=== PATIENT | female | born 1970 | race Caucasian/White ===

== ENCOUNTER → 2019-04-03 12:56 | Emergency (ER) | payer OTHER ==
[~2019-04-03 12:56] MED LIST: Ketorolac INJ* 30 MG/ML 1 ML VIAL IV PUSH ONE
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
[2019-04-03 13:32] LABS: ABS Eosinophils 0.1 10^3/ul (0-0.6); ABS Lymphocytes 1.6 10^3/ul (1.0-4.8); ABS Monocytes 0.6 10^3/ul (0-0.8); ABS Neutrophils 4.6 10^3/ul (1.5-7.7); Eosinophil % 1.2 %; Hematocrit 40 % (35-47); Hemoglobin 13.6 g/dL (12.0-16.0); Lymphocyte % 23.4 %; Mean Corpuscular HGB Conc 34 g/dL (31-36); Mean Corpuscular Hemoglobin 30 pg (27-31); Mean Corpuscular Volume 90 fL (80-97); Mean Platelet Volume 7.2 fL (7.4-10.4); Platelet Count 301 10^3/uL (150-450); Red Blood Count 4.48 10^6 /uL (3.70-4.87); Red Cell Distribution Width 13 % (10.5-15); White Blood Count 6.9 10^3/uL (3.5-10.8)
[2019-04-03 13:44] LABS: Activated Partial Thrombo Time 31.1 seconds (26.0-36.3); INR 0.91 (0.82-1.09)
[2019-04-03 13:50] LABS: HCG Pregnancy < 0.60 mIU/mL
[2019-04-03 13:56] LABS: ALT 12 U/L (7-52); AST 12 U/L (13-39); Albumin 4.1 g/dL (3.2-5.2); Albumin/Globulin Ratio 1.6 (1-3); Alkaline Phosphatase 61 U/L (34-104); Anion Gap 6 mmol/L (2-11); BUN/Creatinine Ratio 20.6 (8-20); Blood Urea Nitrogen 13 mg/dL (6-24); CO2 Carbon Dioxide 26 mmol/L (22-32); Calcium 9.4 mg/dL (8.6-10.3); Chloride 106 mmol/L (101-111); EGFR African American 123.1 (>60); EGFR Non-African American 101.7 (>60); Globulin 2.5 g/dL (2-4); Glucose 113 mg/dL (70-100); Potassium 3.9 mmol/L (3.5-5.0); Sodium 138 mmol/L (135-145); Total Protein 6.6 g/dL (6.4-8.9)
[2019-04-03 16:04] VITALS: BP 141/83
== END | disposition home or self-care (01) ==
LOC: ED 12:56
DX: R07.89 Other chest pain (principal); Z91.041 Radiographic dye allergy status
CPT/HCPCS: 36415; 71046; 80053; 83605; 83735; 83880; 84484; 84702; 85025; 85379; 85610; 85730; 93005; 96374; 99284; J1885